=== PATIENT | female | born 1985 | race Caucasian/White ===

== ENCOUNTER 2019-01-20 16:44 | Inpatient (IN) | payer OTHER ==
[2019-01-20] MEDS ORDERED: Sodium Chloride 0.9% 10 ML Syringe FLUSH PRN (17:16)
[2019-01-20] MEDS ORDERED: Ondansetron 4 MG/2 ML SDV IVPUSH PRN (17:16)
[2019-01-20] MEDS ORDERED: Nalbuphine 10 MG/1 ML Vial IVPUSH PRN (17:16)
--- NOTE | 2019-01-20 17:19 | PCM.LDHP ---
L&D History of Present Illness - General Date of Service: 01/20/19 Admit Problem/Dx: Patient Status Order with Admit Dx/Problem 01/20/19 17:16 Patient Status [ADT] Routine Admission Diagnosis/Problem Admission Diagnosis/Problem Oligohydramnios Source of Information: Patient History Limitations: Reports: No Limitations - History of Present Illness Introduction:: Patient is a 33 y/o at 40 6/7 wks who presents for IOL for oligohydramnios. Had routine Ob appt today and desired to delay IOL until 42 weeks. VANITA/NST planned in clinic. VANITA only 2 cm and so patient informed of need for IOL. She is otherwise doing well. - Related Data Allergies/Adverse Reactions: Allergies Allergy/AdvReac Type Severity Reaction Status Date / Time No Known Allergies Allergy Verified 01/20/19 17:31 Past Medical History [employer] History: Reports: : 3 Para: 0 LMP (Approximate): - Past Surgical History HEENT Surgical History: Reports: Oral Surgery (tooth extraction) Social & Family History - Tobacco Use Smoking Status *Q: Former Smoker - Alcohol Use Alcohol Use History: No - Recreational Drug Use Recreational Drug Use: No H&P Review of Systems - Review of Systems: Review Of Systems: See Below General: Reports: No Symptoms Pulmonary: Reports: No Symptoms Cardiovascular: Reports: No Symptoms Gastrointestinal: Reports: No Symptoms Genitourinary: Reports: No Symptoms Musculoskeletal: Reports: No Symptoms Neurological: Reports: No Symptoms L&D Exam - Exam Exam: See Below - OB Specific Contraction Intensity: Irritability Movement: Active Heart Tones: Present Heart Tones per Min: 155 Heart Rate (FHR) Variability: Moderate (6-25 bmp) Presentation: Vertex - Pereira Score Pereira Score Cervix Position: Posterior Pereira Score Consistency: Soft Pereira Score Effacement: 51-70% Pereira Score Dilation: 1-2 cm Pereira Score 's Station: -3 Pereira Score Total: 5 - Exam General: Alert, Oriented, Cooperative Lungs: Clear to Auscultation, Normal Respiratory Effort Cardiovascular: Regular Rate, Regular Rhythm GI/Abdominal Exam: Soft, Non-Tender Genitourinary: Normal external exam Extremities: Normal Inspection Skin: Warm, Dry, Intact - Patient Data Result Diagrams: 01/20/19 17:51 - Problem List (1) 41 weeks gestation of SNOMED Code(s): 17052879 ICD Code: Z3A.41 - 41 WEEKS GESTATION OF Status: Acute Current Visit: Yes (2) Oligohydramnios SNOMED Code(s): 05176666 ICD Code: O41.00X0 - OLIGOHYDRAMNIOS, UNSP TRIMESTER, NOT APPLICABLE OR UNSP Status: Acute Current Visit: Yes Qualifiers: Fetus number: single or unspecified fetus Trimester: third trimester Qualified Code(s): O41.03X0 - Oligohydramnios, third trimester, not applicable or unspecified Problem List Initiated/Reviewed/Updated: Yes Orders Last 24hrs: Active Orders 24 hr Category Date Time Status Patient Status [ADT] Routine ADT 01/20/19 17:16 Ordered Activity as Tolerated [RC] PFP Care 01/20/19 17:16 Ordered Communication Order [RC] ASDIRECTED Care 01/20/19 17:16 Ordered Communication Order [RC] ASDIRECTED Care 01/20/19 17:16 Ordered Communication Order [RC] ASDIRECTED Care 01/20/19 17:16 Ordered Heart Tones [RC] ASDIRECTED Care 01/20/19 17:17 Ordered Monitoring [RC] INTERMITTENT Care 01/20/19 17:16 Ordered Non Stress Test [RC] PER UNIT ROUTINE Care 01/20/19 17:16 Ordered Notify Provider [RC] ASDIRECTED Care 01/20/19 17:16 Ordered Notify Provider [RC] PRN Care 01/20/19 17:16 Ordered Peripheral IV Care [RC] . DIRECTED Care 01/20/19 17:17 Ordered Vaginal Exam [RC] ASDIRECTED Care 01/20/19 17:16 Ordered Vital Signs [RC] ASDIRECTED Care 01/20/19 17:16 Ordered CBC W/O DIFF,HEMOGRAM [HEME] Routine Lab 01/20/19 17:16 Ordered RAPID PLASMA REAGIN,RPR [CHEM] Routine Lab 01/20/19 17:16 Ordered TYPE AND SCREEN [BBK] Routine Lab 01/20/19 17:16 Ordered Lactated Ringers [Ringers, Lactated] 1,000 ml Med 01/20/19 17:30 Ordered IV ASDIRECTED Nalbuphine [Nubain] Med 01/20/19 17:16 Ordered 10 mg IVPUSH Q2H PRN Ondansetron [Zofran] Med 01/20/19 17:16 Ordered 4 mg IVPUSH Q4H PRN Oxytocin/Lactated Ringers [Pitocin in LR 10 Units/1,000 Med 01/20/19 17:30 Ordered ML] 10 unit in 1,000 ml IV .CONTINUOUS Oxytocin/Lactated Ringers [Pitocin in LR 10 Units/1,000 Med 01/20/19 17:30 Ordered ML] 10 unit in 1,000 ml IV TITRATE Sodium Chloride 0.9% [Saline Flush] Med 01/20/19 17:16 Ordered 10 ml FLUSH ASDIRECTED PRN Electronic Heart Tones Ext w TOCO [WOMSER] Ot 01/20/19 17:16 Ordered Routine Electronic Heart Tones Internal [WOMSER] Per Unit Ot 01/20/19 17:16 Ordered Routine Peripheral IV Insertion Adult [OM.PC] Routine Ot 01/20/19 17:16 Ordered Assessment/Plan Comment:: * Labs * GBS negative * Will start with Cytotec for IOL, pitocin when able * Pain management per patient preference * Anticipate
[2019-01-20] MEDS ORDERED: Oxytocin/Lactated Ringers 10 UNIT/1,000 ML BAG IV SCH ×2 (17:30)
[2019-01-20] MEDS ORDERED: Misoprostol 25 MCG (1/4 of 100 MCG) Tab VAG SCH (18:00)
[2019-01-20] MEDS: Lactated Ringers 1,000 ML IV SCH ×3 (18:40→22:51)
--- NOTE | 2019-01-20 20:17 | PCM.SN ---
- Free Text/Narrative Note: 1999 Called at 1900 regarding deep variables with few contractions. IVF bolus already started. Asked staff to call if no resolution. Baby did well with resolution until 1943 when had a prolonged deceleration into the 80's with slower return to baseline lasting about 4 minutes total. Patient notes only mild-moderate cramping. Baseline now again 155 with moderate variability. Reviewed with patient and that if decelerations would continue this could potentially indicate need for . Ok, however, at this time to continue induction process. Will not plan on additional cytotec as not able to control/discontinue medication. If needs further induction agent will plan on pitocin at 2230 or later. Lizz Cevallos MD
[2019-01-20] MEDS ORDERED: Citric Acid/Sodium Citrate Solution 30 ML Cup ONE (22:14)
[2019-01-20] MEDS ORDERED: Metoclopramide 10 MG/2 ML SDV ONE (22:14)
--- NOTE | 2019-01-20 22:27 | PCM.OPNOTE ---
- General Post-Op/Procedure Note Date of Surgery/Procedure: 01/20/19 Operative Procedure(s): Primary low transverse Findings: Baby girl in a vertex presentation. APGARS of 8 & 9. Weight of 6 lbs 1 oz. Normal appearance of the uterus, fallopian tubes, and ovaries. Pre Op Diagnosis: 40 6/7 wks gestation. Oligohydramnios. NRFS Post-Op Diagnosis: Same Anesthesia Technique: Spinal Primary Surgeon: Lizz Cevallos Secondary Surgeon: Federico Smyth Jr Anesthesia Provider: Rajiv Rosa Reason Enroute Controller Was Necessary: Speed, safety of procedure Pathology: Cord blood collected. Placenta discarded. Fluid Replacement, Intraop: 2,000 Output, Urine Amount: 150 EBL in mLs: 1,200 Complications: None Condition: Good Free Text/Narrative:: The risks, benefits, indications, potential complications, and alternatives were explained to the patient and informed consent obtained. After induction of anesthesia, the patient was placed in a supine position and then draped and prepped in the usual sterile manner. A Pfannenstiel incision was made and carried down through the subcutaneous tissue to the fascia. Fascial incision was made and extended transversely. The fascia was from the underlying rectus tissue superiorly and inferiorly. The peritoneum was identified and entered. Peritoneal incision was extended longitudinally. The utero-vesical peritoneal reflection was incised transversely and the bladder flap was bluntly freed from the lower uterine segment. A low transverse uterine incision was made sharply with a scalpel and extended bluntly in a cephalocaudad direction. A baby girl was delivered from a vertex presentation with APGARS as above. After the umbilical cord was clamped and cut cord blood was obtained for evaluation. The placenta was removed intact and appeared normal. The uterus was exteriorized and cleared of clots. The uterine outline, tubes and ovaries appeared normal. The uterine incision was closed with running locked sutures of 0 Vicryl. A second imbricating layer was then done with an additional 0 vicryl sutures. There was still bleeding noted from the left apex of the hysterotomy. This was controlled with several additional figures of eight sutures. Demario-seal and pressure also applied to site with good hemostasis noted. The uterus was then placed back into the abdomen. Hemostasis again confirmed. The infracolic gutters were cleared of blood clots. The fascia was then reapproximated with running sutures of 0 Vicryl. The subcutaneous tissue was irrigated with sterile warm normal saline, hemostasis obtained with cautery. The skin was reapproximated with running Subcuticular 4 -0 monocryl sutures. Instrument, sponge, and needle counts were correct prior the abdominal closure and at the conclusion of the case.
[2019-01-20] MEDS ORDERED: Metoclopramide 10 MG/2 ML SDV IVPUSH ONE (22:28)
[2019-01-20] MEDS ORDERED: Citric Acid/Sodium Citrate Solution 30 ML Cup PO ONE (22:28)
[2019-01-20] MEDS ORDERED: ceFAZolin 2 GM in Premix Bag 1 BAG IV ONE (22:28)
--- NOTE | 2019-01-20 22:31 | PCM.SN ---
- Free Text/Narrative Note: 1389 Patient with continued deep and occasional prolonged decelerations. Reviewed concerns and patient agreeable to . OR team, peds, and anesthesia notified Lizz Cevallos MD
--- NOTE | 2019-01-20 22:59 | PCM.PREANE ---
Preanesthetic Assessment - Anesthesia/Transfusion/Family Hx Anesthesia History: No Prior Anesthesia Transfusion History: No Prior Transfusion(s) - Review of Systems General: No Symptoms Pulmonary: No Symptoms Cardiovascular: No Symptoms Gastrointestinal: No Symptoms Neurological: No Symptoms Other: Reports: None - Physical Assessment NPO Status Date: 01/20/19 NPO Status Time: 21:30 Vital Signs: Last Vital Signs Temp 98.3 F 01/20/19 17:16 Pulse 70 01/20/19 17:16 Resp 16 01/20/19 17:16 BP 131/72 01/20/19 17:16 Pulse Ox Height: 1.63 m Weight: 71.668 kg Mental Status: Alert & Oriented x3 Airway Class: Mallampati = 1 Dentition: Reports: Dentures Thyro-Mental Finger Breadths: 3 Mouth Opening Finger Breadths: 3 ROM/Head Extension: Full Lungs: Clear to Auscultation Cardiovascular: Regular Rate - Lab Values: Laboratory Last Values WBC 5.93 K/mm3 (3.98-10.04) 01/20/19 17:51 RBC 3.87 M/mm3 (3.98-5.22) L 01/20/19 17:51 Hgb 12.4 gm/dl (11.2-15.7) 01/20/19 17:51 Hct 36.4 % (34.1-44.9) 01/20/19 17:51 MCV 94.1 fl (79.4-94.8) 01/20/19 17:51 MCH 32.0 pg (25.6-32.2) 01/20/19 17:51 MCHC 34.1 g/dl (32.2-35.5) 01/20/19 17:51 RDW Std Deviation 45.9 fL (36.4-46.3) 01/20/19 17:51 Plt Count 176 K/mm3 (182-369) L 01/20/19 17:51 MPV 10.5 fl (9.4-12.3) 01/20/19 17:51 - Allergies Allergies/Adverse Reactions: Allergies Allergy/AdvReac Type Severity Reaction Status Date / Time No Known Allergies Allergy Verified 01/20/19 17:31 - Acknowledgements Anesthesia Type Planned: Spinal Pt an Appropriate Candidate for the Planned Anesthesia: Yes Alternatives and Risks of Anesthesia Discussed w Pt/Guardian: Yes Pt/Guardian Understands and Agrees with Anesthesia Plan: Yes PreAnesthesia Questionnaire [employer] History: Reports: - Past Surgical History HEENT Surgical History: Reports: Oral Surgery (tooth extraction) - SUBSTANCE USE Smoking Status *Q: Former Smoker Tobacco Use Within Last Twelve Months: Cigarettes Recreational Drug Use History: No - HOME MEDS Home Medications: Home Meds Calcium Carbonate [Calcium] 500 mg PO DAILY 01/20/19 [History] Docosahexanoic Acid [DHA] 100 mg PO DAILY 01/20/19 [History] Mv-Mn/Iron/FA/Herbal/Digestive [ One Tablet] 1 each PO DAILY 01/20/19 [ History] - CURRENT (IN HOUSE) MEDS Current Meds: Current Medications Lactated Ringer's (Ringers, Lactated) 1,000 mls @ 40 mls/hr IV ASDIRECTED DEB Last Admin: 01/20/19 22:51 Dose: 999 mls/hr Oxytocin/Lactated Ringer's (Pitocin In Lr 10 Units/1,000 Ml) 10 unit in 1,000 mls @ 12 mls/hr IV TITRATE DEB; Protocol Oxytocin/Lactated Ringer's (Pitocin In Lr 10 Units/1,000 Ml) 10 unit in 1,000 mls @ 500 mls/hr IV .CONTINUOUS DEB Cefazolin Sodium/Dextrose 2 gm (/ Premix) 50 mls @ 100 mls/hr IV ONETIME ONE Stop: 01/20/19 22:57 Nalbuphine HCl (Nubain) 10 mg IVPUSH Q2H PRN PRN Reason: Pain Ondansetron HCl (Zofran) 4 mg IVPUSH Q4H PRN PRN Reason: Nausea/Vomiting Sodium Chloride (Saline Flush) 10 ml FLUSH ASDIRECTED PRN PRN Reason: Keep Vein Open Discontinued Medications Citric Acid/Sodium Citrate (Bicitra Solution) Confirm Administered Dose 30 ml .ROUTE .STK-MED ONE Stop: 01/20/19 22:15 Last Admin: 01/20/19 22:42 Dose: Not Given Citric Acid/Sodium Citrate (Bicitra Solution) 30 ml PO ONETIME ONE Stop: 01/20/19 22:29 Last Admin: 01/20/19 22:25 Dose: 30 ml Metoclopramide HCl (Reglan) Confirm Administered Dose 10 mg .ROUTE .STK-MED ONE Stop: 01/20/19 22:15 Last Admin: 01/20/19 22:41 Dose: Not Given Metoclopramide HCl (Reglan) 10 mg IVPUSH ONETIME ONE Stop: 01/20/19 22:29 Last Admin: 01/20/19 22:29 Dose: 10 mg Misoprostol (Cytotec) 25 mcg VAG Q4H DEB Last Admin: 01/20/19 18:41 Dose: 25 mcg
[2019-01-20] MEDS ORDERED: Morphine PF 10 MG/10 ML SDV ONE (23:07)
[2019-01-20] MEDS ORDERED: Phenylephrine/Normal Saline 100 MCG/ML 10 ML Syringe ONE ×2 (23:21→23:48)
[2019-01-20] MEDS ORDERED: ceFAZolin 1 GM Vial ONE (23:21)
[2019-01-20] MEDS ORDERED: Oxytocin 10 Units/1 ML SDV ONE (23:30)
[2019-01-20] MEDS ORDERED: Lactated Ringers 1,000 ML ONE (23:45)
[2019-01-20] MEDS ORDERED: Meperidine 50 MG/ML Vial ONE (23:49)
[2019-01-20] MEDS ORDERED: Ondansetron 4 MG/2 ML SDV ONE (23:53)
--- NOTE | 2019-01-21 00:28 | PCM.POSTAN ---
POST ANESTHESIA ASSESSMENT - MENTAL STATUS Mental Status: Alert, Oriented - VITAL SIGNS Vital Signs: Last Vital Signs Temp 98.3 F 01/20/19 17:16 Pulse 70 01/20/19 17:16 Resp 16 01/20/19 17:16 BP 131/72 01/20/19 17:16 Pulse Ox - RESPIRATORY Respiratory Status: Respiratory Rate WNL, Airway Patent, O2 Saturation Stable - CARDIOVASCULAR CV Status: Pulse Rate WNL, Blood Pressure Stable - GASTROINTESTINAL GI Status: No Symptoms - PAIN Pain Score: 0 (post SAB) - POST OP HYDRATION Hydration Status: Adequate & Stable
[2019-01-21] MEDS ORDERED: fentaNYL 100 MCG/2 ML SDV IVPUSH PRN (00:44)
[2019-01-21] MEDS ORDERED: diphenhydrAMINE 50 MG/ML SDV IVPUSH PRN ×2 (00:44→01:30)
[2019-01-21] MEDS ORDERED: Ketorolac 30 MG/ML SDV IVPUSH PRN (00:45)
[2019-01-21] MEDS ORDERED: Midazolam 1 MG/ML 2 ML SDV IVPUSH PRN (00:54)
[2019-01-21] MEDS ORDERED: ePHEDrine 50 MG/ML SDV IVPUSH PRN (01:30)
[2019-01-21] MEDS ORDERED: Naloxone 0.4 MG/ML SDV IVPUSH PRN (01:30)
[2019-01-21] MEDS ORDERED: Ondansetron 4 MG/2 ML SDV IV PRN (01:30)
[2019-01-21] MEDS ORDERED: Dextrose 5%-Lactated Ringers 1,000 ML IV SCH (01:30)
[2019-01-21] MEDS ORDERED: Ketorolac 30 MG/ML SDV ONE (02:52)
[2019-01-21] MEDS ORDERED: Ketorolac 30 MG/ML SDV IVPUSH SCH (06:30)
--- NOTE | 2019-01-21 07:01 | PCM.PNPP ---
- General Info Date of Service: 01/21/19 Functional Status: Reports: Pain Controlled, Tolerating Diet, Ambulating - Review of Systems General: Reports: No Symptoms Pulmonary: Reports: No Symptoms Cardiovascular: Reports: No Symptoms Gastrointestinal: Reports: Abdominal Pain Genitourinary: Reports: No Symptoms Musculoskeletal: Reports: No Symptoms Neurological: Reports: No Symptoms - Patient Data Vital Signs - Most Recent: Last Vital Signs Temp 37.1 C 01/21/19 03:09 Pulse 107 H 01/21/19 03:09 Resp 15 01/21/19 05:00 BP 111/65 01/21/19 03:09 Pulse Ox 100 01/21/19 06:25 Weight - Most Recent: 71.668 kg I&O - Last 24 Hours: Intake & Output 01/20/19 01/21/19 01/21/19 22:59 06:59 14:59 Intake Total 4460 Output Total 1150 Balance 3310 Lab Results - Last 24 Hours: Laboratory Results - last 24 hr 01/20/19 01/20/19 01/20/19 Range/Units 17:51 17:51 17:51 WBC 5.93 (3.98-10.04) K/mm3 RBC 3.87 L (3.98-5.22) M/mm3 Hgb 12.4 (11.2-15.7) gm/dl Hct 36.4 (34.1-44.9) % MCV 94.1 (79.4-94.8) fl MCH 32.0 (25.6-32.2) pg MCHC 34.1 (32.2-35.5) g/dl RDW Std Deviation 45.9 (36.4-46.3) fL Plt Count 176 L (182-369) K/mm3 MPV 10.5 (9.4-12.3) fl RPR Non-reactive (NONREACTIVE) Blood Type O POSITIVE Gel Antibody Screen Negative Med Orders - Current: Current Medications Diphenhydramine HCl (Benadryl) 25 mg IVPUSH Q6H PRN PRN Reason: Itching or Nausea Docusate Sodium (Colace) 100 mg PO Q12H PRN PRN Reason: Constipation Ephedrine Sulfate (Ephedrine Sulfate) 5 mg IVPUSH SEECOMMENT PRN PRN Reason: Other Fentanyl (Sublimaze) 50 mcg IVPUSH Q5M PRN PRN Reason: Pain Dextrose/Lactated Ringer's (Dextrose 5%-Lactated Ringers) 1,000 mls @ 125 mls/ hr IV ASDIRECTED DEB Stop: 01/21/19 09:29 Ketorolac Tromethamine (Toradol) 30 mg IVPUSH Q6H DEB Stop: 01/21/19 15:01 Midazolam HCl (Versed 1 Mg/Ml) 2 mg IVPUSH ONETIME PRN PRN Reason: Anxiety Last Admin: 01/21/19 01:01 Dose: 2 mg Naloxone HCl (Narcan) 0.1 mg IVPUSH SEECOMMENT PRN PRN Reason: Respiratory Depression Ondansetron HCl (Zofran) 4 mg IV Q8H PRN PRN Reason: Nausea/Vomiting Oxycodone/Acetaminophen (Percocet 325-5 Mg) 2 tab PO Q4H PRN PRN Reason: Pain (moderate 4-6) Discontinued Medications Cefazolin Sodium (Ancef) Confirm Administered Dose 2 gm .ROUTE .STK-MED ONE Stop: 01/20/19 23:22 Citric Acid/Sodium Citrate (Bicitra Solution) Confirm Administered Dose 30 ml .ROUTE .STK-MED ONE Stop: 01/20/19 22:15 Last Admin: 01/20/19 22:42 Dose: Not Given Citric Acid/Sodium Citrate (Bicitra Solution) 30 ml PO ONETIME ONE Stop: 01/20/19 22:29 Last Admin: 01/20/19 22:25 Dose: 30 ml Diphenhydramine HCl (Benadryl) 25 mg IVPUSH Q6H PRN PRN Reason: Pruritis Lactated Ringer's (Ringers, Lactated) 1,000 mls @ 40 mls/hr IV ASDIRECTED DEB Last Admin: 01/20/19 22:51 Dose: 999 mls/hr Oxytocin/Lactated Ringer's (Pitocin In Lr 10 Units/1,000 Ml) 10 unit in 1,000 mls @ 12 mls/hr IV TITRATE DEB; Protocol Oxytocin/Lactated Ringer's (Pitocin In Lr 10 Units/1,000 Ml) 10 unit in 1,000 mls @ 500 mls/hr IV .CONTINUOUS DEB Cefazolin Sodium/Dextrose 2 gm (/ Premix) 50 mls @ 100 mls/hr IV ONETIME ONE Stop: 01/20/19 22:57 Lactated Ringer's (Ringers, Lactated) Confirm Administered Dose 1,000 mls @ as directed .ROUTE .STK-MED ONE Stop: 01/20/19 23:46 Ketorolac Tromethamine (Toradol) 30 mg IVPUSH Q6H PRN PRN Reason: Pain Stop: 01/26/19 00:46 Ketorolac Tromethamine (Toradol) 30 mg IVPUSH Q6H DEB Stop: 01/21/19 18:31 Last Admin: 01/21/19 02:55 Dose: 30 mg Meperidine HCl (Meperidine) Confirm Administered Dose 50 mg .ROUTE .STK-MED ONE Stop: 01/20/19 23:50 Metoclopramide HCl (Reglan) Confirm Administered Dose 10 mg .ROUTE .STK-MED ONE Stop: 01/20/19 22:15 Last Admin: 01/20/19 22:41 Dose: Not Given Metoclopramide HCl (Reglan) 10 mg IVPUSH ONETIME ONE Stop: 01/20/19 22:29 Last Admin: 01/20/19 22:29 Dose: 10 mg Misoprostol (Cytotec) 25 mcg VAG Q4H [facility] Last Admin: 01/20/19 18:41 Dose: 25 mcg Morphine Sulfate (Duramorph Pf) Confirm Administered Dose 10 mg .ROUTE .STK-MED ONE Stop: 01/20/19 23:08 Nalbuphine HCl (Nubain) 10 mg IVPUSH Q2H PRN PRN Reason: Pain Ondansetron HCl (Zofran) 4 mg IVPUSH Q4H PRN PRN Reason: Nausea/Vomiting Ondansetron HCl (Zofran) Confirm Administered Dose 8 mg .ROUTE .STK-MED ONE Stop: 01/20/19 23:54 Oxytocin (Pitocin) Confirm Administered Dose 20 unit .ROUTE .STK-MED ONE Stop: 01/20/19 23:31 Phenylephrine HCl (Phenylephrine In Ns 100 Mcg/Ml) Confirm Administered Dose 1 mg .ROUTE .STK-MED ONE Stop: 01/20/19 23:22 Phenylephrine HCl (Phenylephrine In Ns 100 Mcg/Ml) Confirm Administered Dose 1 mg .ROUTE .STK-MED ONE Stop: 11/27/19 23:49 Sodium Chloride (Saline Flush) 10 ml FLUSH ASDIRECTED PRN PRN Reason: Keep Vein Open - Interaction Infant Disposition, : in Room with Family Interaction: Holding Feeding: Attempted ; Nursed Fair/Poor Support Person: Mother - Recovery Exam Fundal Tone: Firm Fundal Level: At Umbilicus Fundal Placement: Midline Lochia Amount: Scant, Small Lochia Color: Rubra/Red Perineum Description: Intact, Minimal Bruising/Swelling Episiotomy/Laceration: None Bladder Status: Nonpalpable, Indwelling Catheter in Place Urinary Elimination: Indwelling Catheter - Exam General: Alert, Oriented, Cooperative Lungs: Clear to Auscultation, Normal Respiratory Effort Cardiovascular: Regular Rate, Regular Rhythm GI/Abdominal Exam: Soft, Tender (appropriate post op) Extremities: Normal Inspection Skin: Warm, Dry, Intact Wound/Incisions: Dressing Dry and Intact - Problem List & Annotations (1) 41 weeks gestation of SNOMED Code(s): 78052643 Code(s): Z3A.41 - 41 WEEKS GESTATION OF Status: Acute Current Visit: Yes (2) Oligohydramnios SNOMED Code(s): 31732404 Code(s): O41.00X0 - OLIGOHYDRAMNIOS, UNSP TRIMESTER, NOT APPLICABLE OR UNSP Status: Acute Current Visit: Yes Qualifiers: Fetus number: single or unspecified fetus Trimester: third trimester Qualified Code(s): O41.03X0 - Oligohydramnios, third trimester, not applicable or unspecified (3) Non-reassuring status SNOMED Code(s): 727928054 Code(s): RGK0999 - Status: Acute Current Visit: Yes (4) S/P primary low transverse SNOMED Code(s): 750832745, 83421343, 860237309, 243185125, 551487800 Code(s): Z98.891 - HISTORY OF UTERINE SCAR FROM PREVIOUS SURGERY Status: Acute Current Visit: Yes - Problem List Review Problem List Initiated/Reviewed/Updated: Yes - My Orders Last 24 Hours: My Active Orders 01/20/19 17:16 Monitoring [RC] INTERMITTENT 01/20/19 17:17 Heart Tones [RC] ASDIRECTED 01/20/19 22:28 Procedure Site Prep Instruct [RC] ASDIRECTED Verify Patient Consent Obtain [RC] PER UNIT ROUTINE 01/21/19 01:30 Activity as Tolerated [RC] .Routine Antiembolic Devices [RC] PER UNIT ROUTINE Communication Order [RC] PER UNIT ROUTINE Intake and Output [RC] Q4H May Shower [RC] PER UNIT ROUTINE Notify Provider Intake and Out [RC] ASDIRECTED RT Incentive Spirometry [RC] Q2HWA Acetaminophen/oxyCODONE [Percocet 325-5 MG] 2 tab PO Q4H PRN Dextrose 5%-Lactated Ringers 1,000 ml IV ASDIRECTED Docusate Sodium [Colace] 100 mg PO Q12H PRN Naloxone [Narcan] 0.1 mg IVPUSH SEECOMMENT PRN Ondansetron [Zofran] 4 mg IV Q8H PRN diphenhydrAMINE [Benadryl] 25 mg IVPUSH Q6H PRN ePHEDrine [ePHEDrine sulfate] 5 mg IVPUSH SEECOMMENT PRN Assess Lochia [WOMSER] Per Unit Routine Assess Uterine Involution [WOMSER] Per Unit Routine Breast Pump [WOMSER] Per Unit Routine Heat Therapy [OM.PC] Per Unit Routine Peripheral IV Discontinue [OM.PC] Routine Sequential Compression Device [OM.PC] Per Unit Routine 01/21/19 09:00 Ketorolac [Toradol] 30 mg IVPUSH Q6H 01/21/19 15:00 CBC W/O DIFF,HEMOGRAM [HEME] Routine 01/21/19 Breakfast Regular Diet [DIET] 01/22/19 00:19 Urinary Catheter Removal [RC] Per Unit Routine - Assessment Assessment:: 33 y/o G3 no w P1021 POD#1 from [facility] for NRFS - Plan Plan:: * Routine cares * Breast feeding * CBC later this PM * Discharge in 2 days
[2019-01-21] MEDS: Ketorolac 30 MG/ML SDV IVPUSH SCH ×2 (08:53→15:24)
--- NOTE | 2019-01-21 12:53 | PCM48HPAN ---
Post Anesthesia Note - EVALUATION WITHIN 48HRS OF ANESTHETIC Vital Signs in Normal Range: Yes Patient Participated in Evaluation: Yes Respiratory Function Stable: Yes Airway Patent: Yes Cardiovascular Function Stable: Yes Hydration Status Stable: Yes Pain Control Satisfactory: Yes Nausea and Vomiting Control Satisfactory: Yes Mental Status Recovered: Yes Vital Signs: Last Vital Signs Temp 98.4 F 01/21/19 11:38 Pulse 90 01/21/19 11:38 Resp 16 01/21/19 11:38 BP 115/56 L 01/21/19 11:38 Pulse Ox 100 01/21/19 11:38 - COMMENTS/OBSERVATIONS Free Text/Narrative:: Patient on her postoperative day 1. Patient has stated understanding about possible backaches following epidural / spinal anesthesia. Patient denies any headache, lightheadedness or backache at this time. Ambulating, Macario catheter has not been discontinued yet..
[2019-01-21] MEDS: Acetaminophen/oxyCODONE 325-5 MG Tab PO PRN ×2 (14:32→20:15)
[2019-01-21] MEDS: Docusate Sodium 100 MG Cap PO PRN (20:51)
[2019-01-22] MEDS: Ibuprofen 600 MG Tab PO PRN ×4 (00:46→23:42)
[2019-01-22] MEDS: Acetaminophen/oxyCODONE 325-5 MG Tab PO PRN ×4 (02:53→21:14)
--- NOTE | 2019-01-22 07:27 | PCM.PNPP ---
- General Info Date of Service: 01/22/19 Functional Status: Reports: Pain Controlled, Tolerating Diet, Ambulating, Urinating - Review of Systems General: Reports: No Symptoms Pulmonary: Reports: No Symptoms Cardiovascular: Reports: No Symptoms Gastrointestinal: Reports: Nausea (this AM when getting out of bed) Genitourinary: Reports: No Symptoms Musculoskeletal: Reports: No Symptoms - Patient Data Vital Signs - Most Recent: Last Vital Signs Temp 36.7 C 01/22/19 03:34 Pulse 87 01/22/19 03:34 Resp 14 01/22/19 03:34 BP 109/60 01/22/19 03:34 Pulse Ox 98 01/22/19 03:34 Weight - Most Recent: 71.668 kg I&O - Last 24 Hours: Intake & Output 01/21/19 01/22/19 01/22/19 22:59 06:59 14:59 Output Total 1500 650 Balance -1500 -650 Lab Results - Last 24 Hours: Laboratory Results - last 24 hr 01/21/19 Range/Units 15:51 WBC 11.80 H (3.98-10.04) K/mm3 RBC 2.73 L (3.98-5.22) M/mm3 Hgb 8.6 L D (11.2-15.7) gm/dl Hct 26.2 L (34.1-44.9) % MCV 96.0 H (79.4-94.8) fl MCH 31.5 (25.6-32.2) pg MCHC 32.8 (32.2-35.5) g/dl RDW Std Deviation 45.4 (36.4-46.3) fL Plt Count 170 L (182-369) K/mm3 MPV 9.6 (9.4-12.3) fl Med Orders - Current: Current Medications Diphenhydramine HCl (Benadryl) 25 mg IVPUSH Q6H PRN PRN Reason: Itching or Nausea Docusate Sodium (Colace) 100 mg PO Q12H PRN PRN Reason: Constipation Last Admin: 01/21/19 20:51 Dose: 100 mg Ephedrine Sulfate (Ephedrine Sulfate) 5 mg IVPUSH SEECOMMENT PRN PRN Reason: Other Fentanyl (Sublimaze) 50 mcg IVPUSH Q5M PRN PRN Reason: Pain Ibuprofen (Motrin) 600 mg PO Q6H PRN PRN Reason: Pain (moderate 4-6) Last Admin: 01/22/19 06:20 Dose: 600 mg Midazolam HCl (Versed 1 Mg/Ml) 2 mg IVPUSH ONETIME PRN PRN Reason: Anxiety Last Admin: 01/21/19 01:01 Dose: 2 mg Naloxone HCl (Narcan) 0.1 mg IVPUSH SEECOMMENT PRN PRN Reason: Respiratory Depression Ondansetron HCl (Zofran) 4 mg IV Q8H PRN PRN Reason: Nausea/Vomiting Oxycodone/Acetaminophen (Percocet 325-5 Mg) 2 tab PO Q4H PRN PRN Reason: Pain (moderate 4-6) Last Admin: 01/22/19 02:53 Dose: 2 tab Discontinued Medications Cefazolin Sodium (Ancef) Confirm Administered Dose 2 gm .ROUTE .STK-MED ONE Stop: 01/20/19 23:22 Citric Acid/Sodium Citrate (Bicitra Solution) Confirm Administered Dose 30 ml .ROUTE .STK-MED ONE Stop: 01/20/19 22:15 Last Admin: 01/20/19 22:42 Dose: Not Given Citric Acid/Sodium Citrate (Bicitra Solution) 30 ml PO ONETIME ONE Stop: 01/20/19 22:29 Last Admin: 01/20/19 22:25 Dose: 30 ml Diphenhydramine HCl (Benadryl) 25 mg IVPUSH Q6H PRN PRN Reason: Pruritis Lactated Ringer's (Ringers, Lactated) 1,000 mls @ 40 mls/hr IV ASDIRECTED DEB Last Admin: 01/20/19 22:51 Dose: 999 mls/hr Oxytocin/Lactated Ringer's (Pitocin In Lr 10 Units/1,000 Ml) 10 unit in 1,000 mls @ 12 mls/hr IV TITRATE DEB; Protocol Oxytocin/Lactated Ringer's (Pitocin In Lr 10 Units/1,000 Ml) 10 unit in 1,000 mls @ 500 mls/hr IV .CONTINUOUS DEB Cefazolin Sodium/Dextrose 2 gm (/ Premix) 50 mls @ 100 mls/hr IV ONETIME ONE Stop: 01/20/19 22:57 Lactated Ringer's (Ringers, Lactated) Confirm Administered Dose 1,000 mls @ as directed .ROUTE .STK-MED ONE Stop: 01/20/19 23:46 Dextrose/Lactated Ringer's (Dextrose 5%-Lactated Ringers) 1,000 mls @ 125 mls/ hr IV ASDIRECTED PENDING SALE TO [facility] Stop: 01/21/19 09:29 Ketorolac Tromethamine (Toradol) 30 mg IVPUSH Q6H PRN PRN Reason: Pain Stop: 01/26/19 00:46 Ketorolac Tromethamine (Toradol) 30 mg IVPUSH Q6H [facility] TO [facility] Stop: 01/21/19 18:31 Last Admin: 01/21/19 02:55 Dose: 30 mg Ketorolac Tromethamine (Toradol) 30 mg IVPUSH Q6H [facility] TO [facility] Stop: 01/21/19 15:01 Last Admin: 01/21/19 15:24 Dose: 30 mg Meperidine HCl (Meperidine) Confirm Administered Dose 50 mg .ROUTE .STK-MED ONE Stop: 01/20/19 23:50 Metoclopramide HCl (Reglan) Confirm Administered Dose 10 mg .ROUTE .STK-MED ONE Stop: 01/20/19 22:15 Last Admin: 01/20/19 22:41 Dose: Not Given Metoclopramide HCl (Reglan) 10 mg IVPUSH ONETIME ONE Stop: 01/20/19 22:29 Last Admin: 01/20/19 22:29 Dose: 10 mg Misoprostol (Cytotec) 25 mcg VAG Q4H [facility]END[facility] S[facility] TO [facility] Last Admin: 01/20/19 18:41 Dose: 25 mcg Morphine Sulfate (Duramorph Pf) Confirm Administered Dose 10 mg .ROUTE .STK-MED ONE Stop: 01/20/19 23:08 Nalbuphine HCl (Nubain) 10 mg IVPUSH Q2H PRN PRN Reason: Pain Ondansetron HCl (Zofran) 4 mg IVPUSH Q4H PRN PRN Reason: Nausea/Vomiting Ondansetron HCl (Zofran) Confirm Administered Dose 8 mg .ROUTE .STK-MED ONE Stop: 01/20/19 23:54 Oxytocin (Pitocin) Confirm Administered Dose 20 unit .ROUTE .STK-MED ONE Stop: 01/20/19 23:31 Phenylephrine HCl (Phenylephrine In Ns 100 Mcg/Ml) Confirm Administered Dose 1 mg .ROUTE .STK-MED ONE Stop: 01/20/19 23:22 Phenylephrine HCl (Phenylephrine In Ns 100 Mcg/Ml) Confirm Administered Dose 1 mg .ROUTE .STK-MED ONE Stop: 01/20/19 23:49 Sodium Chloride (Saline Flush) 10 ml FLUSH ASDIRECTED PRN PRN Reason: Keep Vein Open - Interaction Disposition, : [place] in Room with Family Infant Interaction: Holding Feeding: Attempted ; Nursed Fair/Poor Support Person: Mother - Recovery Exam Fundal Tone: Firm Fundal Level: 1 Fingerbreadths Below Umbilicus Fundal Placement: Midline Lochia Amount: Small Lochia Color: Rubra/Red Perineum Description: Intact, Minimal Bruising/Swelling Episiotomy/Laceration: None Bladder Status: Voiding Urinary Elimination: Indwelling Catheter - Exam General: Alert, Oriented, Cooperative Lungs: Clear to Auscultation, Normal Respiratory Effort Cardiovascular: Regular Rate, Regular Rhythm GI/Abdominal Exam: Soft, Tender (appropriate post op ) Extremities: Normal Inspection Skin: Warm, Dry, Intact Wound/Incisions: Healing Well, No Drainage - Problem List & Annotations (1) 41 weeks gestation of SNOMED Code(s): 26840834 Code(s): Z3A.41 - 41 WEEKS GESTATION OF Status: Acute Current Visit: Yes (2) Oligohydramnios SNOMED Code(s): 54324399 Code(s): O41.00X0 - OLIGOHYDRAMNIOS, UNSP TRIMESTER, NOT APPLICABLE OR UNSP Status: Acute Current Visit: Yes Qualifiers: Fetus number: single or unspecified fetus Trimester: third trimester Qualified Code(s): O41.03X0 - Oligohydramnios, third trimester, not applicable or unspecified (3) Non-reassuring status SNOMED Code(s): 332443253 Code(s): LBK2168 - Status: Acute Current Visit: Yes (4) S/P primary low transverse SNOMED Code(s): 697194922, 81353213, 806020377, 550671914, 336247138 Code(s): Z98.891 - HISTORY OF UTERINE SCAR FROM PREVIOUS SURGERY Status: Acute Current Visit: Yes - Problem List Review Problem List Initiated/Reviewed/Updated: Yes - My Orders Last 24 Hours: My Active Orders 01/21/19 Breakfast Regular Diet [DIET] 01/22/19 00:34 Ibuprofen [Motrin] 600 mg PO Q6H PRN - Assessment Assessment:: 33 y/o G3 no w P1021 POD#2 from [facility] for NRFS - Plan Plan:: * Routine cares * Breast feeding * Discharge tomorrow
[2019-01-22] MEDS: Docusate Sodium 100 MG Cap PO PRN ×2 (08:22→22:25)
[2019-01-22] MEDS: Ondansetron 4 MG Tab.DIS PO PRN (13:49)
[2019-01-23] MEDS: Acetaminophen/oxyCODONE 325-5 MG Tab PO PRN ×2 (01:44→09:17)
[2019-01-23] MEDS: Ibuprofen 600 MG Tab PO PRN ×2 (05:45→13:53)
[2019-01-23] MEDS ORDERED: Polyethylene Glycol 3350 Powder 17 GM Packet PO SCH (09:00)
[2019-01-23] MEDS: Docusate Sodium 100 MG Cap PO PRN (09:18)
[2019-01-23] MEDS: Ondansetron 4 MG Tab.DIS PO PRN (09:36)
--- NOTE | 2019-01-23 11:38 | PCM.DCSUM1 ---
Discharge Summary - Hospital Course Free Text/Narrative:: [facility] Post-Op/Procedure Note Patient Name: FRANKO SHORT Date of : 87 Patient Status: Inpatient Attending Provider: Lizz Cevallos Date: 01/20/19 22:27 Initialization Date: 01/20/19 22:27 - General Post-Op/Procedure Note Date of Surgery/Procedure: 01/20/19 Operative Procedure(s): Primary low transverse Findings: Baby girl in a vertex presentation. APGARS of 8 & 9. Weight of 6 lbs 1 oz. Normal appearance of the uterus, fallopian tubes, and ovaries. Pre Op Diagnosis: 40 6/7 wks gestation. Oligohydramnios. NRFS Post-Op Diagnosis: Same Anesthesia Technique: Spinal Primary Surgeon: Lizz Cevallos Secondary Surgeon: Federico Smyth Jr Anesthesia Provider: Rajiv Rosa Reason Government Affairs Director Was Necessary: Speed, safety of procedure Pathology: Cord blood collected. Placenta discarded. Fluid Replacement, Intraop: 2,000 Output, Urine Amount: 150 EBL in mLs: 1,200 Complications: None Condition: Good Free Text/Narrative:: The risks, benefits, indications, potential complications, and alternatives were explained to the patient and informed consent obtained. After induction of anesthesia, the patient was placed in a supine position and then draped and prepped in the usual sterile manner. A Pfannenstiel incision was made and carried down through the subcutaneous tissue to the fascia. Fascial incision was made and extended transversely. The fascia was from the underlying rectus tissue superiorly and inferiorly. The peritoneum was identified and entered. Peritoneal incision was extended longitudinally. The utero-vesical peritoneal reflection was incised transversely and the bladder flap was bluntly freed from the lower uterine segment. A low transverse uterine incision was made sharply with a scalpel and extended bluntly in a cephalocaudad direction. A baby girl was delivered from a vertex presentation with APGARS as above. After the umbilical cord was clamped and cut cord blood was obtained for evaluation. The placenta was removed intact and appeared normal. The uterus was exteriorized and cleared of clots. The uterine outline, tubes and ovaries appeared normal. The uterine incision was closed with running locked sutures of 0 Vicryl. A second imbricating layer was then done with an additional 0 vicryl sutures. There was still bleeding noted from the left apex of the hysterotomy. This was controlled with several additional figures of eight sutures. Demario-seal and pressure also applied to site with good hemostasis noted. The uterus was then placed back into the abdomen. Hemostasis again confirmed. The infracolic gutters were cleared of blood clots. The fascia was then reapproximated with running sutures of 0 Vicryl. The subcutaneous tissue was irrigated with sterile warm normal saline, hemostasis obtained with cautery. The skin was reapproximated with running Subcuticular 4 -0 monocryl sutures. Instrument, sponge, and needle counts were correct prior the abdominal closure and at the conclusion of the case. Patient anemia, but declined blood transfusion. Will treat with PNV and iron and vitamin C. HPI Initial Comments: [facility] Post-Op/Procedure Note Patient Name: FRANKO SHORT Date of : 87 Patient Status: Inpatient Attending Provider: Lizz Cevallos Date: 01/20/19 22:27 Initialization Date: 01/20/19 22:27 - General Post-Op/Procedure Note Date of Surgery/Procedure: 01/20/19 Operative Procedure(s): Primary low transverse Findings: Baby girl in a vertex presentation. APGARS of 8 & 9. Weight of 6 lbs 1 oz. Normal appearance of the uterus, fallopian tubes, and ovaries. Pre Op Diagnosis: 40 6/7 wks gestation. Oligohydramnios. NRFS Post-Op Diagnosis: Same Anesthesia Technique: Spinal Primary Surgeon: Lizz Cevallos Secondary Surgeon: Federico Smyth Jr Anesthesia Provider: Rajiv Rosa Reason Government Affairs Director Was Necessary: Speed, safety of procedure Pathology: Cord blood collected. Placenta discarded. Fluid Replacement, Intraop: 2,000 Output, Urine Amount: 150 EBL in mLs: 1,200 Complications: None Condition: Good Free Text/Narrative:: The risks, benefits, indications, potential complications, and alternatives were explained to the patient and informed consent obtained. After induction of anesthesia, the patient was placed in a supine position and then draped and prepped in the usual sterile manner. A Pfannenstiel incision was made and carried down through the subcutaneous tissue to the fascia. Fascial incision was made and extended transversely. The fascia was from the underlying rectus tissue superiorly and inferiorly. The peritoneum was identified and entered. Peritoneal incision was extended longitudinally. The utero-vesical peritoneal reflection was incised transversely and the bladder flap was bluntly freed from the lower uterine segment. A low transverse uterine incision was made sharply with a scalpel and extended bluntly in a cephalocaudad direction. A baby girl was delivered from a vertex presentation with APGARS as above. After the umbilical cord was clamped and cut cord blood was obtained for evaluation. The placenta was removed intact and appeared normal. The uterus was exteriorized and cleared of clots. The uterine outline, tubes and ovaries appeared normal. The uterine incision was closed with running locked sutures of 0 Vicryl. A second imbricating layer was then done with an additional 0 vicryl sutures. There was still bleeding noted from the left apex of the hysterotomy. This was controlled with several additional figures of eight sutures. Demario-seal and pressure also applied to site with good hemostasis noted. The uterus was then placed back into the abdomen. Hemostasis again confirmed. The infracolic gutters were cleared of blood clots. The fascia was then reapproximated with running sutures of 0 Vicryl. The subcutaneous tissue was irrigated with sterile warm normal saline, hemostasis obtained with cautery. The skin was reapproximated with running Subcuticular 4 -0 monocryl sutures. Instrument, sponge, and needle counts were correct prior the abdominal closure and at the conclusion of the case. Patient anemia, but declined blood transfusion. Will treat with PNV and iron and vitamin C. Brief History: [facility] . Post-Op/Procedure Note. [facility]: [id number] Date of : Patient Status: Inpatient. Attending Provider: Lizz Cevalloscount Number: [id number]. Date: 01/20/19 22:27Initialization Date: 01/20/19 22:27. - General Post-Op/Procedure Note. Date of Surgery/Procedure: 01/20/19. Operative Procedure(s): Primary low transverse . Findings: Baby girl in a vertex presentation. APGARS of 8 & 9. Weight of 6 lbs 1 oz. Normal appearance of the uterus, fallopian tubes, and ovaries. Pre Op Diagnosis: 40 6/ 7 wks gestation. Oligohydramnios. NRFS. Post-Op Diagnosis: Same. Anesthesia Technique: Spinal. Primary Surgeon: Lizz Cevallos. Secondary Surgeon: Federico Smyth Jr. Anesthesia Provider: Rajiv Rosa. Reason Government Affairs Director Was Necessary: Speed, safety of procedure. Pathology: Cord blood collected. Placenta discarded. Fluid Replacement, Intraop: 2,000. Output, Urine Amount: 150. EBL in mLs: 1,200. Complications: None. Condition: Good. Free Text/ Narrative:: The risks, benefits, indications, potential complications, and alternatives were explained to the patient and informed consent obtained. After induction of anesthesia, the patient was placed in a supine position and then draped and prepped in the usual sterile manner. A Pfannenstiel incision was made and carried down through the subcutaneous tissue to the fascia. Fascial incision was made and extended transversely. The fascia was from the underlying rectus tissue superiorly and inferiorly. The peritoneum was identified and entered. Peritoneal incision was extended longitudinally. The utero-vesical peritoneal reflection was incised transversely and the bladder flap was bluntly freed from the lower uterine segment. A low transverse uterine incision was made sharply with a scalpel and extended bluntly in a cephalocaudad direction. A baby girl was delivered from a vertex presentation with APGARS as above. After the umbilical cord was clamped and cut cord blood was obtained for evaluation. The placenta was removed intact and appeared normal. The uterus was exteriorized and cleared of clots. The uterine outline, tubes and ovaries appeared normal. The uterine incision was closed with running locked sutures of 0 Vicryl. A second imbricating layer was then done with an additional 0 vicryl sutures. There was still bleeding noted from the left apex of the hysterotomy. This was controlled with several additional figures of eight sutures. Demario-seal and pressure also applied to site with good hemostasis noted. The uterus was then placed back into the abdomen. Hemostasis again confirmed. The infracolic gutters were cleared of blood clots. The fascia was then reapproximated with running sutures of 0 Vicryl. The subcutaneous tissue was irrigated with sterile warm normal saline, hemostasis obtained with cautery. The skin was reapproximated with running Subcuticular 4-0 monocryl sutures. Instrument, sponge, and needle counts were correct prior the abdominal closure and at the conclusion of the case. Patient anemia, but declined blood transfusion. Will treat with PNV and iron and vitamin C. Diagnosis: Stroke: No - Discharge Data Discharge Date: 01/23/19 Discharge Disposition: Home, Self-Care 01 Condition: Good - Referral to Home Health Primary Care Physician: Lizz Cevallos MD - Discharge Diagnosis/Problem(s) (1) 41 weeks gestation of SNOMED Code(s): 43643483 ICD Code: Z3A.41 - 41 WEEKS GESTATION OF Status: Acute Current Visit: Yes (2) Non-reassuring status SNOMED Code(s): 178551753 ICD Code: ELT4204 - Status: Acute Current Visit: Yes (3) Oligohydramnios SNOMED Code(s): 49073689 ICD Code: O41.00X0 - OLIGOHYDRAMNIOS, UNSP TRIMESTER, NOT APPLICABLE OR UNSP Status: Acute Current Visit: Yes Qualifiers: Fetus number: single or unspecified fetus Trimester: third trimester Qualified Code(s): O41.03X0 - Oligohydramnios, third trimester, not applicable or unspecified (4) S/P primary low transverse SNOMED Code(s): 171342546, 15154213, 811746707, 626327036, 420911220 ICD Code: Z98.891 - HISTORY OF UTERINE SCAR FROM PREVIOUS SURGERY Status: Acute Current Visit: Yes (5) Anemia due to acute blood loss SNOMED Code(s): 474725422 ICD Code: D62 - ACUTE POSTHEMORRHAGIC ANEMIA Status: Acute Current Visit : Yes - Patient Summary/Data Operative Procedure(s) Performed: Primary low transverse Complications: Anemia , declined blood transfusion we will treat with vitamins iron and vitamin C Consults: None Hospital Course: Uneventful - Patient Instructions Diet: Usual Diet as Tolerated Driving: Do Not Drive (x2 weeks) Showering/Bathing: May Shower, No Tub Bathing/Swimming (x6 weeks) Wound/Incision Care: Keep Operative Site/Wound Site Clean and Dry Notify Provider of: Fever, Increased Pain, Swelling and Redness, Drainage, Nausea and/or Vomiting - Discharge Plan *PRESCRIPTION DRUG MONITORING PROGRAM REVIEWED*: Yes *COPY OF PRESCRIPTION DRUG MONITORING REPORT IN PATIENT ROMMEL: Yes Prescriptions/Med Rec: Acetaminophen 650 mg PO Q6H #50 oral.susp Acetaminophen/oxyCODONE [Percocet 325-5 MG] 1 tab PO BEDTIME PRN #10 tablet PRN Reason: Pain (Moderate 4-6) Ascorbic Acid 100 gm MC TID #100 granules Ferrous Sulfate [Slow Fe] 142 mg PO TID #100 tablet.er 25/Iron/Folate 6/Dha [Vitamedmd One Rx Softgel] 1 each PO DAILY #100 capsule Home Medications: Home Meds Calcium Carbonate [Calcium] 500 mg PO DAILY 01/20/19 [History] Docosahexanoic Acid [DHA] 100 mg PO DAILY 01/20/19 [History] Mv-Mn/Iron/FA/Herbal/Digestive [ One Tablet] 1 each PO DAILY 01/20/19 [ History] Acetaminophen 650 mg PO Q6H #50 oral.susp 01/23/19 [Rx] Acetaminophen/oxyCODONE [Percocet 325-5 MG] 1 tab PO BEDTIME PRN #10 tablet [Rx] Ascorbic Acid 100 gm MC TID #100 granules 01/23/19 [Rx] Docusate Sodium [Colace] 100 mg PO Q12H PRN cap 01/23/19 [Rx] Ferrous Sulfate [Slow Fe] 142 mg PO TID #100 tablet.er 01/23/19 [Rx] Ibuprofen [Motrin] 600 mg PO Q6H PRN tablet 01/23/19 [Rx] 25/Iron/Folate 6/Dha [Vitamedmd One Rx Softgel] 1 each PO DAILY #100 capsule 01/23/19 [Rx] Referrals: Lizz Cevallos MD [Primary Care Provider] - (to see in 2 weeks) - Discharge Summary/Plan Comment DC Time >30 min.: No - Patient Data Vitals - Most Recent: Last Vital Signs Temp 98.8 F 01/23/19 02:01 Pulse 83 01/23/19 02:01 Resp 14 01/23/19 02:01 BP 109/71 01/23/19 02:01 Pulse Ox 100 01/23/19 02:01 Weight - Most Recent: 158 lb I&O - Last 24 hours: Intake & Output 01/22/19 01/23/19 01/23/19 22:59 06:59 14:59 Intake Total 200 Balance 200 Lab Results - Last 24 hrs: Laboratory Results - last 24 hr 01/23/19 Range/Units 10:40 WBC 8.44 (3.98-10.04) K/mm3 RBC 2.51 L (3.98-5.22) M/mm3 Hgb 7.9 L (11.2-15.7) gm/dl Hct 24.4 L (34.1-44.9) % MCV 97.2 H (79.4-94.8) fl MCH 31.5 (25.6-32.2) pg MCHC 32.4 (32.2-35.5) g/dl RDW Std Deviation 45.8 (36.4-46.3) fL Plt Count 179 L (182-369) K/mm3 MPV 9.1 L (9.4-12.3) fl Med Orders - Current: Current Medications Diphenhydramine HCl (Benadryl) 25 mg IVPUSH Q6H PRN PRN Reason: Itching or Nausea Docusate Sodium (Colace) 100 mg PO Q12H PRN PRN Reason: Constipation Last Admin: 01/23/19 09:18 Dose: 100 mg Ephedrine Sulfate (Ephedrine Sulfate) 5 mg IVPUSH SEECOMMENT PRN PRN Reason: Other Fentanyl (Sublimaze) 50 mcg IVPUSH Q5M PRN PRN Reason: Pain Ibuprofen (Motrin) 600 mg PO Q6H PRN PRN Reason: Pain (moderate 4-6) Last Admin: 01/23/19 05:45 Dose: 600 mg Midazolam HCl (Versed 1 Mg/Ml) 2 mg IVPUSH ONETIME PRN PRN Reason: Anxiety Last Admin: 01/21/19 01:01 Dose: 2 mg Naloxone HCl (Narcan) 0.1 mg IVPUSH SEECOMMENT PRN PRN Reason: Respiratory Depression Ondansetron HCl (Zofran) 4 mg IV Q8H PRN PRN Reason: Nausea/Vomiting Ondansetron HCl (Zofran Odt) 8 mg PO Q8H PRN PRN Reason: Nausea/Vomiting Last Admin: 01/23/19 09:36 Dose: 4 mg Oxycodone/Acetaminophen (Percocet 325-5 Mg) 2 tab PO Q4H PRN PRN Reason: Pain (moderate 4-6) Last Admin: 01/23/19 09:17 Dose: 2 tab Polyethylene Glycol (Miralax) 17 gm PO BID DEB Last Admin: 01/23/19 09:18 Dose: 17 gm Discontinued Medications Cefazolin Sodium (Ancef) Confirm Administered Dose 2 gm .ROUTE .STK-MED ONE Stop: 01/20/19 23:22 Citric Acid/Sodium Citrate (Bicitra Solution) Confirm Administered Dose 30 ml .ROUTE .STK-MED ONE Stop: 01/20/19 22:15 Last Admin: 01/20/19 22:42 Dose: Not Given Citric Acid/Sodium Citrate (Bicitra Solution) 30 ml PO ONETIME ONE Stop: 01/20/19 22:29 Last Admin: 01/20/19 22:25 Dose: 30 ml Diphenhydramine HCl (Benadryl) 25 mg IVPUSH Q6H PRN PRN Reason: Pruritis Lactated Ringer's (Ringers, Lactated) 1,000 mls @ 40 mls/hr IV ASDIRECTED DEB Last Admin: 01/20/19 22:51 Dose: 999 mls/hr Oxytocin/Lactated Ringer's (Pitocin In Lr 10 Units/1,000 Ml) 10 unit in 1,000 mls @ 12 mls/hr IV TITRATE DEB; Protocol Oxytocin/Lactated Ringer's (Pitocin In Lr 10 Units/1,000 Ml) 10 unit in 1,000 mls @ 500 mls/hr IV .CONTINUOUS DEB Cefazolin Sodium/Dextrose 2 gm (/ Premix) 50 mls @ 100 mls/hr IV ONETIME ONE Stop: 01/20/19 22:57 Lactated Ringer's (Ringers, Lactated) Confirm Administered Dose 1,000 mls @ as directed .ROUTE .STK-MED ONE Stop: 01/20/19 23:46 Dextrose/Lactated Ringer's (Dextrose 5%-Lactated Ringers) 1,000 mls @ 125 mls/ hr IV ASDIRECTED DEB Stop: 01/21/19 09:29 Ketorolac Tromethamine (Toradol) 30 mg IVPUSH Q6H PRN PRN Reason: Pain Stop: 01/26/19 00:46 Ketorolac Tromethamine (Toradol) 30 mg IVPUSH Q6H DEB Stop: 01/21/19 18:31 Last Admin: 01/21/19 02:55 Dose: 30 mg Ketorolac Tromethamine (Toradol) 30 mg IVPUSH Q6H [facility] Stop: 01/21/19 15:01 Last Admin: 01/21/19 15:24 Dose: 30 mg Meperidine HCl (Meperidine) Confirm Administered Dose 50 mg .ROUTE .STK-MED ONE Stop: 01/20/19 23:50 Metoclopramide HCl (Reglan) Confirm Administered Dose 10 mg .ROUTE .STK-MED ONE Stop: 01/20/19 22:15 Last Admin: 01/20/19 22:41 Dose: Not Given Metoclopramide HCl (Reglan) 10 mg IVPUSH ONETIME ONE Stop: 01/20/19 22:29 Last Admin: 01/20/19 22:29 Dose: 10 mg Misoprostol (Cytotec) 25 mcg VAG Q4H [facility] Last Admin: 01/20/19 18:41 Dose: 25 mcg Morphine Sulfate (Duramorph Pf) Confirm Administered Dose 10 mg .ROUTE .STK-MED ONE Stop: 01/20/19 23:08 Nalbuphine HCl (Nubain) 10 mg IVPUSH Q2H PRN PRN Reason: Pain Ondansetron HCl (Zofran) 4 mg IVPUSH Q4H PRN PRN Reason: Nausea/Vomiting Ondansetron HCl (Zofran) Confirm Administered Dose 8 mg .ROUTE .STK-MED ONE Stop: 01/20/19 23:54 Oxytocin (Pitocin) Confirm Administered Dose 20 unit .ROUTE .STK-MED ONE Stop: 01/20/19 23:31 Phenylephrine HCl (Phenylephrine In Ns 100 Mcg/Ml) Confirm Administered Dose 1 mg .ROUTE .STK-MED ONE Stop: 01/20/19 23:22 Phenylephrine HCl (Phenylephrine In Ns 100 Mcg/Ml) Confirm Administered Dose 1 mg .ROUTE .STK-MED ONE Stop: 01/20/19 23:49 Sodium Chloride (Saline Flush) 10 ml FLUSH ASDIRECTED PRN PRN Reason: Keep Vein Open
[2019-01-23] MEDS ORDERED: Cyclobenzaprine 10 MG Tab PO PRN (15:32)
== END 2019-01-23 17:30 | disposition home or self-care (01) | DRG 787 ==
LOC: JD.OB 16:44 → OBSVTOIN 23:31 → JD.OB 23:31
PROVIDERS: ADMIT Obstetrics & Gynecology; ATTEND Obstetrics & Gynecology
PROC: 10D00Z1 Extraction of Products of Conception, Low, Open Approach (ICD-10-PCS; principal; 2019-01-20)
DX: O41.03X0 Oligohydramnios, third trimester, not applicable or unspecified (principal); D62 Acute posthemorrhagic anemia; O99.02 Anemia complicating childbirth; O48.0 Post-term pregnancy; O76 Abnormality in fetal heart rate and rhythm complicating labor and delivery; Z3A.40 40 weeks gestation of pregnancy; Z37.0 Single live birth; Z3A.41 41 weeks gestation of pregnancy
CPT/HCPCS: 36415; 59025; 85027; 86592; 86850; 86900; 86901; 94762; A9270-GY; J0690; J1885; J2175; J2250; J2270; J2370; J2405; J2590; J2765; J7120